=== PATIENT | male | born 1980 | race Caucasian/White ===

== ENCOUNTER 2018-08-24 08:31 | Emergency (ER) | payer BC ==
[~2018-08-24] VITALS: Ht 188 cm; Wt 77.4 kg
--- NOTE | 2018-08-24 08:43 | NUR ---
PT AMBULATORY WITH STEADY GAIT TO ROOM.
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
[2018-08-24] MEDS ORDERED: SODIUM CHLORIDE FLUSH 10ML SYR IVF ONE (09:00)
--- NOTE | 2018-08-24 09:16 | NUR ---
PIV ESTABLISHED. PT TOLERATED WITH NO COMPLICATIONS.
[2018-08-24] MEDS ORDERED: OXYcodone/APAP 10/325MG TABLET ONE (09:20)
[2018-08-24 09:21] VITALS: BP 129/88
--- NOTE | 2018-08-24 09:21 | NUR ---
THIS RN IN TO GIVE PAIN MEDICATION, PT TAKEN TO CT
[2018-08-24] MEDS ORDERED: OXYcodone/APAP 10/325MG TABLET PO ONE (09:30)
--- NOTE | 2018-08-24 09:33 | NUR ---
PT BACK FROM IMAGING. PT RESTING ON GURNEY. GIRLFRIEND BEDSIDE. NO ACUTE DISTRESS NOTED. NO NEEDS REQUESTED AT THIS TIME.
[2018-08-24] MEDS ORDERED: OMNIPAQUE 350 MG/ML, 100ML BOTTLE ONE (09:41)
--- NOTE | 2018-08-24 10:31 | NUR ---
Patient/Caregiver given discharge instructions and they have confirmed that they understand the instructions. Patient ambulatory with steady gait. PT LEFT WITH ALL PERSONAL BELONGINGS. PT VERBALIZED UNDERSTANDING REGARDING RETURNING TO AN EMERGENCY ROOM IS S/SX WORSEN.
== END 2018-08-24 10:36 | disposition home or self-care (01) ==
LOC: ED 09:58
DX: S27.0XXA Traumatic pneumothorax, initial encounter (principal); S22.42XA Multiple fractures of ribs, left side, initial encounter for closed fracture; F17.210 Nicotine dependence, cigarettes, uncomplicated; V47.5XXA Car driver injured in collision with fixed or stationary object in traffic accident, initial encounter; Y93.89 Activity, other specified; Y92.89 Other specified places as the place of occurrence of the external cause; Y99.8 Other external cause status
CPT/HCPCS: 26770; 71260; 73130; 74177; 99284; Q9967